=== PATIENT | female | born 1985 | race Caucasian/White ===

== ENCOUNTER 2022-03-31 10:06 | Emergency (ER) | payer OTHER, SELFPAY ==
--- NOTE | ~2022-03-31 | CT_ITS ---
EXAMINATION: CT abdomen pelvis w con DATE: 03/31/2022 12:25 INDICATION: Low abdominal pain. TECHNIQUE: Computed tomography (CT) of the abdomen and pelvis was performed with 100 mL Omnipaque 350 intravenous contrast. Automated exposure control and iterative reconstruction technique were employe d. The dose-length product was 190.46 mGy-cm. COMPARISON: None. FINDINGS: The visualized portions of the lung bases demonstrate mild atelectasis. No pleural effusion . The heart size is normal. No pericardial effusion. There are bilateral breast implants. There is a 5 mm cyst in the liver. The gallbladder, spleen, pancreas, adrenal glands, and kidneys are normal. Th ere is an 11 mm fibroid in the uterus. There are no dilated loops of bowel. The appendix is normal. T here are no pathologically enlarged lymph nodes. There is no free intraperitoneal fluid. There is lum bar levoscoliosis. IMPRESSION: 1. Small uterine fibroid. Reviewed, dictated and finalized at location A. IMPRESSION: 1. Small uterine fibroid.
[2022-03-31 10:17] VITALS: BP 112/51; PULSE 73; RESP 18; TEMP 36.9; O2SAT 99
[2022-03-31 11:32] LABS: Appearance Urine Slightly Cloudy (Clear); Bilirubin Urine Negative (Negative); Blood Urine 2+ (Negative); Color Urine Yellow (Yellow); Glucose Urine UA Negative (Negative); Ketones Urine 2+ mg/dL (Negative); Leukocyte Esterase Ur Negative LEU/UL (Negative); Nitrate Urine Negative (Negative); Protein Urine Negative (Negative); Specific Grav Ur >= 1.030 (1.001-1.035); Urobilinogen Urine 0.2 mg/dL (<2.0)
[2022-03-31 11:43] LABS: Add Urine Microscopic? YES
--- NOTE | 2022-03-31 11:43 | ED.FEMALEGU ---
HPI - Female Genitourinary General Chief complaint: Urogenital-Female Stated complaint: UTI Time Seen by Provider: 03/31/22 10:21 History of Present Illness HPI Narrative: 36-year-old female presents the emergency room for complaints of suprapubic pain that radiates bilaterally to both flanks. Patient states that she was diagnosed with a very bad urinary tract infection yesterday at urgent care. Patient states that she has taken 2 doses of Bactrim and states her low back pain is worse. Patient also endorses some mild nausea. States called urgent care this morning and they recommended the patient come to the ER for possible kidney stone. Patient is currently on her menses. Related Data Home Medications Medication Instructions Recorded Confirmed baclofen 10 mg tablet 10 mg PO HS 03/31/22 sulfamethoxazole 800 800 tablet BID 03/31/22 mg-trimethoprim 160 mg tablet (Bactrim DS) Allergies Allergy/AdvReac Type Severity Reaction Status Date / Time No Known Allergies Allergy Verified 03/31/22 11:30 Review of Systems Review of Systems: CONSTITUTIONAL: Denies fever, chills, or sweats. EYES: Denies visual changes, redness, or discharge. ENT: Denies rhinorrhea, congestion, sore throat, or otalgia. CARDIOVASCULAR: Denies chest pain, palpitations, or edema. RESPIRATORY: Denies cough or dyspnea. GASTROINTESTINAL: Reports nausea GENITOURINARY: Reports dysuria SKIN: Denies rash or itching. MUSCULOSKELETAL: Reports lower back pain NEUROLOGIC: Denies headache, numbness, dizziness, or weakness. PSYCHIATRIC: Denies anxiety or depression. Exam Narrative: GENERAL: Well-appearing, well-nourished, no physical limitations, and in no acute distress. HEAD: Normocephalic, atraumatic. EYES: Conjunctivae normal, PERRLA and EOMI. CHEST: Clear to auscultation. No respiratory distress. No wheezes rales or rhonchi. No tenderness. HEART: Regular rate and rhythm. No murmur heard. Normal peripheral pulses. ABDOMEN: Soft, suprapubic tenderness, nondistended, normal active bowel sounds. BACK: No CVA tenderness; low back tenderness, full range of motion EXTREMITIES: Normal range of motion. No edema. No clubbing or cyanosis SKIN: Warm, dry, no rash. No noted wounds NEURO: No focal deficits. Alert and oriented x3. MAEW. CN's II-XI intact bilaterally, normal gait PSYCH: Cooperative. Normal mood and affect. Course Vital Signs Vital signs: Vital Signs Temperature 36.9 C 03/31/22 10:17 Pulse Rate 73 03/31/22 10:17 Respiratory Rate 18 03/31/22 10:17 Blood Pressure 112/51 L 03/31/22 10:17 Pulse Oximetry 99 03/31/22 10:17 Oxygen Delivery Room Air 03/31/22 10:17 Temperature 36.9 C 03/31/22 10:17 Pulse Rate 73 03/31/22 10:17 Respiratory Rate 18 03/31/22 10:17 Blood Pressure 112/51 L 03/31/22 10:17 Pulse Oximetry 99 03/31/22 10:17 Oxygen Delivery Room Air 03/31/22 10:17 MDM - Female Genitourinary MDM Narrative Medical decision making narrative: 36-year-old female presented with complaints of lower abdominal pain that radiated through to her back. Patient states that she was seen in urgent care yesterday and diagnosed with a very bad urinary tract infection . Urine showed no evidence of infection at this time. Patient was concerned she might have a kidney stone due to the blood in her urine despite being on her menstrual cycle, the CT scan showed no evidence of kidney stones. Imaging did demonstrate moderate to significant amount of stool load. Discussed findings with patient, and recommend that she take daily MiraLAX Lab Data Result diagrams: 03/31/22 11:56 03/31/22 11:56 Labs: Lab Results 03/31/22 03/31/22 03/31/22 Range/Units 10:42 11:56 11:56 WBC 5.7 (4.5-10.0) K/mm3 RBC 4.14 L (4.2-5.4) M/mm3 Hgb 12.5 (12.0-15.0) g/dL Hct 37.5 (37.0-47.0) % MCV 90.6 (80-100) fl MCH 30.2 (26-34) pg MCHC 33.3 (32-36) g/dl RDW 12.7
[2022-03-31 11:45] LABS: Mucus Urine Few /lpf; Squamous Epithelial Cell Urine Many /hpf (Few)
[2022-03-31 11:46] LABS: Bacteria Urine 2+ /hpf; RBC Urine 0-2 /hpf (0-2); WBC Urine 0-3 /hpf (0-3)
[2022-03-31] MEDS: SODIUM CHLORIDE 0.9% IV 1,000 ML 999 ML IV CONT (12:00)
[2022-03-31] MEDS: KETOROLAC 30 MG/ML VIAL (*BKC) IV PUSH (12:00)
[2022-03-31] MEDS: ONDANSETRON INJ 4 MG/2 ML VIAL IV PUSH (12:00)
[2022-03-31 12:04] LABS: Basophils Percent Auto 0.3 % (0.2-1.2); Eosinophils Absolute Auto 0.1 K/mm3 (0-0.3); Eosinophils Percent Auto 1.4 % (0-4.4); Hematocrit 37.5 % (37.0-47.0); Hemoglobin 12.5 g/dL (12.0-15.0); Immature Granulocyte Absolute 0.01 K/mm3 (0.00-0.031); Immature Granulocyte Percent A 0.2 % (0-0.5); Lymphocytes Absolute Auto 1.92 K/mm3 (0.9-3.2); Lymphocytes Percent Auto 33.6 % (18.3-44.2); Mean Corpuscular HGB Conc 33.3 g/dl (32-36); Mean Corpuscular Hemoglobin 30.2 pg (26-34); Mean Corpuscular Volume 90.6 fl (80-100); Mean Platelet Volume 9.2 fl (7.4-10.4); Monocytes Absolute Auto 0.7 K/mm3 (0.1-0.6); Monocytes Percent Auto 11.5 % (2.6-8.5); Platelet Count Result 241 k/mm3 (150-375); Red Blood Count 4.14 M/mm3 (4.2-5.4); Red Cell Distribution Width 12.7 % (11.5-14.5); White Blood Count 5.7 K/mm3 (4.5-10.0)
[2022-03-31 12:15] LABS: Alanine Aminotransferase 15 U/L (6-35); Alkaline Phosphatase 63 U/L (38-126); Anion Gap 16 mmol/L (8-16); Aspartate Amino Transferase 26 U/L (14-36); Bilirubin,Total 0.6 mg/dL (0.2-1.3); Blood Urea Nitrogen 14 mg/dL (7-17); Calcium 8.9 mg/dL (8.4-10.2); Carbon Dioxide 22 mmol/L (22-30); Chloride 102 mmol/L (98-107); Estimated CRCL calculation 64 ml/min; Estimated Glomerular Filt Rate > 60; Glucose 97 mg/dL (65-110); Potassium 3.9 mmol/L (3.4-5.0); Sodium 140 mmol/L (137-145)
== END 2022-03-31 13:30 | disposition home or self-care (01) ==
PROVIDERS: Emergency Provider Nurse Practitioner Family
DX: K59.00 Constipation, unspecified (principal)
CPT/HCPCS: 36415; 74177; 80053; 81001; 81025; 85025; 96361; 96374; 96375; 99284; J1885; J2405; J7030; Q9967

== ENCOUNTER 2022-12-23 08:34 | Emergency (ER) | payer OTHER, SELFPAY ==
[2022-12-23 08:43] VITALS: BP 108/76; PULSE 74; RESP 16; TEMP 37; O2SAT 100
--- NOTE | 2022-12-23 08:45 | ED.URI ---
HPI - URI/Sore Throat General Chief Complaint: Upper Respiratory Infection Stated Complaint: Congestion,Cough Time Seen by Provider: 12/23/22 08:45 Source: patient Mode of arrival: ambulatory Limitations: no limitations History of Present Illness HPI Narrative: 36-year-old female who presents with 5 days of congestion, sinus pressure and cough. Patient went to [facility] urgent care and [place] on Monday and tested negative for COVID and strep. Patient states she is not having more yellow green snot. States her throat feels better at this time. As taken Zyrtec and Gloria Penaloza. States she is sensitive to Sudafed. Denies any fever, chills, ear pain, nausea, vomiting, diarrhea. Related Data Home Medications Medication Instructions Recorded Confirmed baclofen 10 mg tablet 10 mg PO HS 12/23/22 12/23/22 norethindrone 1 mg-ethinyl 1 tablet PO DAILY 12/23/22 12/23/22 estradiol 20 mcg (21)-iron 75 mg (7) tablet (Loestrin Fe 08/12 (28-Day)) sertraline 50 mg tablet 50 mg PO DAILY 12/23/22 12/23/22 solifenacin 5 mg tablet 5 mg PO DAILY 12/23/22 12/23/22 Allergies Allergy/AdvReac Type Severity Reaction Status Date / Time No Known Allergies Allergy Verified 12/23/22 08:38 Review of Systems Review of Systems: All systems reviewed & are unremarkable except as noted in HPI and below Constitutional: Constitutional: Denies body ache(s), Denies chills, Denies fatigue, Denies fever(s), Denies headache(s), Denies malaise and Denies weakness Eyes: Eyes: Denies blurry vision, Denies itchy eyes and Denies loss of vision ENT: Denies otalgia, Denies headache(s), Reports nasal congestion, Denies sinus pain, Reports sinus pressure and Denies sore throat Cardiovascular: Cardiovascular: Denies chest pain, Denies irregular heart rhythm and Denies dyspnea Respiratory: Respiratory: Reports cough and Denies dyspnea Gastrointestinal: Gastrointestinal: Denies abdominal pain, Denies diarrhea, Denies nausea and Denies vomiting Musculoskeletal: Musculoskeletal: Denies back pain, Denies myalgias and Denies arthralgias Integumentary/Breasts: Skin/Breast: Denies pruritus and Denies rash Neurologic: Denies headache(s), Denies loss of vision and Denies weakness Psychiatric: Psychiatric: Reports no additional psychiatric complaints Endocrine: Endocrine: Denies fatigue Allergic/Immunologic: Allergic/Immunologic: Denies itchy eyes PMFSH Comments At time of signature, agree with nursing past medical, surgical, social and family history. There is no relevant family history pertinent to the presenting complaint. Exam Const: General: cooperative, healthy appearing, comfortable, no acute distress and well nourished Nutritional Appearance: well nourished Orientation/consciousness: patient oriented x3 Limitations: no limitations HENMT: Head: normal to inspection, normocephalic and atraumatic Ears: hearing grossly normal bilaterally, external ears normal, TM's normal bilaterally, EAC's normal and no periauricular adenopathy Face/Nose/Sinus: Normal external nose present, Abnormal mucous membranes and turbinates present erythematous bilateral and diffuse, normal facial exam, sinuses nontender and face symmetric Face and sinus: normal facial exam, sinuses nontender and face symmetric Mouth: Yes Normal oral and palatal mucosa present, Yes lip normal, Yes tongue normal, Yes Normal salivary glands and ducts present, Yes oropharynx normal and Yes moist mucous membranes Teeth and gingiva: dentition normal Throat: posterior oropharynx normal, tonsils normal and uvula midline Eyes: General: appearance normal, both eyes and all related structures Alignment and Position: alignment normal and position normal Periorbital: periorbital findings normal Eyelids: eyelids normal Pupils: Equal, round and reactive pupils present Neck: Neck: normal visual inspection, full ROM, no lymphadenopathy and supple Chest: Chest palpation & inspection: normal insp
== END 2022-12-23 09:07 | disposition home or self-care (01) ==
PROVIDERS: Emergency Provider Nurse Practitioner Family
DX: J06.9 Acute upper respiratory infection, unspecified (principal); F41.9 Anxiety disorder, unspecified; F32.A Depression, unspecified
CPT/HCPCS: 99213; G0463

== ENCOUNTER 2022-12-26 08:11 | Emergency (ER) | payer OTHER, SELFPAY ==
[2022-12-26 08:56] VITALS: BP 117/67; PULSE 67; RESP 18; TEMP 36.5; O2SAT 100
--- NOTE | 2022-12-26 09:13 | ED.URI ---
HPI - URI/Sore Throat General Chief Complaint: Upper Respiratory Infection Stated Complaint: cough Source: patient Mode of arrival: ambulatory Limitations: no limitations History of Present Illness HPI Narrative: 37-year-old female presents to [facility] with complaints of right ear pain in bilateral eye erythema, irritation and purulent drainage for the past 2-3 days. Patient reports that she has been ill with cold-like symptoms for the past 8 days. Patient has been seen at numerous urgent cares over the past 8 days. Patient was last seen here 3 days ago, diagnosed with viral illness and was prescribed with a steroid at that time. Patient reports that she has had ear infections in the past. Patient is a nonsmoker. Patient reports that her daughter was recently ill with similar cold-like symptoms. Patient denies fever, body aches, chills, nausea, vomiting or diarrhea. Patient denies recent travel. MD elicited complaint: cough, rhinorrhea and nasal congestion Onset (ago): day(s) (8) Able to tolerate fluids by mouth: Yes Associated symptoms: ear pain Related Data Home Medications Medication Instructions Recorded Confirmed baclofen 10 mg tablet 10 mg PO HS 12/23/22 12/26/22 norethindrone 1 mg-ethinyl 1 tablet PO DAILY 12/23/22 12/26/22 estradiol 20 mcg (21)-iron 75 mg (7) tablet (Loestrin Fe 08/12 (28-Day)) sertraline 50 mg tablet 50 mg PO DAILY 12/23/22 12/26/22 solifenacin 5 mg tablet 5 mg PO DAILY 12/23/22 12/26/22 Allergies Allergy/AdvReac Type Severity Reaction Status Date / Time No Known Allergies Allergy Verified 12/26/22 08:58 Review of Systems Constitutional: Constitutional: Denies chills, Denies fatigue, Denies fever(s) and Denies weakness Eyes: Comments: Bilateral eye irritation, redness and drainage ENT: Denies vertigo, Denies dizziness, Denies epistaxis, Reports nasal congestion and Denies sore throat Comments: Right ear pain Respiratory: Respiratory: Reports cough, Denies dyspnea and Denies wheezing Gastrointestinal: Gastrointestinal: Denies diarrhea, Denies nausea and Denies vomiting Integumentary/Breasts: Skin/Breast: Denies rash Allergic/Immunologic: Allergic/Immunologic: Denies throat swelling, Denies tongue swelling and Denies wheezing PMFSH Comments At time of signature, I agree with nursing past medical, surgical, social and family history. There is no relevant family history pertinent to the presenting complaint. Exam Const: General: healthy appearing and no acute distress Nutritional Appearance: well nourished Orientation/consciousness: patient oriented x3 Limitations: no limitations HENMT: Head: normal to inspection Ears: EAC's normal and TM abnormal dull on the right and erythematous on the right; not perforated Face/Nose/Sinus: Normal external nose present Mouth: Yes Normal oral and palatal mucosa present, Yes lip normal and Yes moist mucous membranes Throat: posterior oropharynx normal and uvula midline Eyes: Pupils: Equal, round and reactive pupils present Direct Ophthalmoscopy: no photophobia Other: Mild erythema noted to bilateral eyes, there is no purulent drainage noted at this time Neck: Neck: normal visual inspection Resp: Effort & Inspection: normal respiratory effort and not labored Auscultation: clear to auscultation bilaterally, no crackles, no rales and no rhonchi Cardio: Rate: regular rate Rhythm: regular rhythm Heart sounds: no murmurs Skin: General skin exam: normal color Rashes: no rashes Neuro: General: patient oriented x3 Psych: Affect: normal affect Attitude: cooperative Course Course Level of Care: Express Care Visit Vital Signs Vital signs: Vital Signs Temperature 36.5 C 12/26/22 08:56 Pulse Rate 67 12/26/22 08:56 Respiratory Rate 18 12/26/22 08:56 Blood Pressure 117/67 12/26/22 08:56 Pulse Oximetry 100 12/26/22 08:56 Oxygen Delivery Room Air 12/26/22 08:56 Temperature 36.5 C
== END 2022-12-26 09:25 | disposition home or self-care (01) ==
PROVIDERS: Emergency Provider Nurse Practitioner Family
DX: H66.91 Otitis media, unspecified, right ear (principal); H10.33 Unspecified acute conjunctivitis, bilateral; F41.9 Anxiety disorder, unspecified; F32.A Depression, unspecified
CPT/HCPCS: 99213; G0463